=== PATIENT | male | born 1965 | race Caucasian/White ===

== ENCOUNTER 2018-02-09 19:50 | Inpatient (IN) | payer BC, OTHER, SELFPAY ==
[~2018-02-09] VITALS: Ht 185.4 cm; Wt 142.9 kg
[2018-02-09] MEDS ORDERED: SODIUM CHLORIDE FLUSH 10ML SYR IVF ONE ×2 (20:30→21:30)
[2018-02-09] MEDS ORDERED: NITROGLYCERIN SINGLE TAB 0.4 MG SL ONE ×2 (20:36→20:42)
[2018-02-09] MEDS: NITROGLYCERIN SINGLE TAB 0.4 MG SL PRN ×2 (20:44→20:51)
[2018-02-09 21:00] LABS: BASOPHILS # (AUTO) 0.02 x10^3/uL (0-0.1); BASOPHILS % (AUTO) 0 % (0-1); EOSINOPHILS # (AUTO) 0.23 x10^3/uL (0-0.4); EOSINOPHILS % (AUTO) 2 % (1-7); LYMPHOCYTES # (AUTO) 3.29 x10^3/uL (1-3.4); LYMPHOCYTES % (AUTO) 33 % (22-44); MD NO; MEAN CORPUSCULAR HEMOGLOBIN 29.8 pg (27.5-34.5); MEAN CORPUSCULAR HGB CONC 34.3 g/dL (33.2-36.2); MEAN CORPUSCULAR VOLUME 87.1 fL (81-97); MEAN PLATELET VOLUME 7.9 fL (7.4-10.4); MONOCYTES # (AUTO) 0.63 x10^3/uL (0.2-0.8); MONOCYTES % (AUTO) 6 % (2-9); NEUTROPHILS # (AUTO) 5.91 x10^3/uL (1.8-6.8); NEUTROPHILS % (AUTO) 59 % (42-75); PLATELET COUNT 301 x10^3/uL (130-400); RED BLOOD COUNT 6.01 x10^6/uL (4.38-5.82); RED CELL DISTRIBUTION WIDTH 13.8 % (9.4-14.8)
[2018-02-09 21:15] LABS: ALBUMIN 4.1 g/dL (3.4-5.0); ANION GAP 6 mmol/L (5-15); CALCIUM 8.9 mg/dL (8.5-10.1); CHLORIDE 106 mmol/L (98-107)
[2018-02-09 21:19] LABS: TROPONIN I < 0.015 ng/mL (0.000-0.045)
[2018-02-09] MEDS ORDERED: MORPHINE SULFATE 4 MG/ML, 1ML ONE (21:19)
[2018-02-09] MEDS ORDERED: ASPIRIN 81 MG TABLET CHEW ONE (21:19)
[2018-02-09] MEDS ORDERED: NITROGLYCERIN OINT 2%, 1GM TP ONE ×2 (21:19→21:30)
[2018-02-09] MEDS ORDERED: MORPHINE SULFATE 4 MG/ML, 1ML IVPush PRN (21:30)
[2018-02-09] MEDS ORDERED: ASPIRIN 81 MG TABLET CHEW PO ONE (21:30)
[2018-02-09] MEDS ORDERED: NIAC500T PO (22:26)
[2018-02-09] MEDS ORDERED: OLME1TAB28 PO (22:26)
[2018-02-09] MEDS ORDERED: ACETAMINOPHEN 325 MG TABLET PO PRN (22:30)
[2018-02-09] MEDS ORDERED: TEMAZEPAM 15 MG CAPSULE PO PRN (22:30)
[2018-02-09] MEDS ORDERED: DOCUSATE 100 MG CAPSULE PO PRN (22:30)
[2018-02-09] MEDS ORDERED: ONDANSETRON ODT 4 MG PO PRN (22:30)
[2018-02-09] MEDS ORDERED: ENALAPRILAT 1.25 MG/ML, 2ML IVPush PRN (22:30)
[2018-02-09] MEDS ORDERED: morphine SULFATE 10 MG/ML, 1ML IVPush PRN (22:30)
[2018-02-09] MEDS ORDERED: LIDODERM 5% PATCH TD PRN (22:30)
[2018-02-09] MEDS ORDERED: NITROGLYCERIN 0.4 MG BOTTLE (25 TABS) SL PRN (22:30)
[2018-02-09] MEDS ORDERED: ROSU20TA PO (22:51)
[2018-02-09] MEDS ORDERED: ATORVASTATIN 40 MG TABLET PO SCH (23:00)
[2018-02-09 23:28] VITALS: BP 150/99
[2018-02-10] MEDS: HEPARIN 5,000 UNITS/ML, 1ML SQ SCH ×2 (00:11→10:27)
[2018-02-10 02:00] VITALS: BP 128/79
[2018-02-10 03:28] LABS: TROPONIN I < 0.015 ng/mL (0.000-0.045)
[2018-02-10 07:23] VITALS: BP 145/89
[2018-02-10] MEDS ORDERED: REGADENOSON 0.4 MG/5 ML SYRINGE ONE (07:51)
[2018-02-10] MEDS ORDERED: [UNRECOGNIZED DRUG - OTHER] PO SCH (09:00)
[2018-02-10] MEDS ORDERED: NIACIN 500 MG TABLET.ER PO SCH (09:00)
[2018-02-10] MEDS ORDERED: HYDROCHLOROTHIAZIDE 25 MG TABLET PO SCH (09:00)
[2018-02-10] MEDS ORDERED: LOSARTAN 50MG TABLET PO SCH (09:00)
[2018-02-10] MEDS ORDERED: OLMESARTAN PO SCH (09:00)
[2018-02-10] MEDS ORDERED: HYDROCHLOROTHIAZIDE PO SCH (09:00)
[2018-02-10 11:28] LABS: TROPONIN I < 0.015 ng/mL (0.000-0.045)
[2018-02-10] MEDS ORDERED: METO25TA35 PO (13:47)
[2018-02-10] MEDS ORDERED: HYDR25TA6 PO (13:47)
[2018-02-10] MEDS ORDERED: ASPI-515 PO (13:47)
[2018-02-10] MEDS ORDERED: ATOR40TA78 PO (13:47)
== END 2018-02-10 16:15 | disposition home or self-care (01) | DRG 313 ==
LOC: ED 22:24 → EDIP 22:44 → 4WST 22:59 → DCLOUNGE 02-10 16:02
PROVIDERS: ADMIT Hospitalist; ATTEND Hospitalist
DX: R07.89 Other chest pain (principal); Z68.41 Body mass index [BMI] 40.0-44.9, adult; I11.9 Hypertensive heart disease without heart failure; E66.01 Morbid (severe) obesity due to excess calories; F17.210 Nicotine dependence, cigarettes, uncomplicated; Z79.82 Long term (current) use of aspirin; Z79.899 Other long term (current) drug therapy; I25.2 Old myocardial infarction; Z88.8 Allergy status to other drugs, medicaments and biological substances; Z91.048 Other nonmedicinal substance allergy status
CPT/HCPCS: 0399T; 36415; 71045; 78452; 80048; 82040; 83880; 84484; 85025; 93005; 93017; 93306; G0378; J1644; J2785; A9502; C9898

== ENCOUNTER 2018-10-24 13:37 | Observation (INO) | payer OTHER ==
[~2018-10-24] VITALS: Ht 185.4 cm; Wt 145.7 kg
[~2018-10-24 13:37] MED LIST: ASPI-515 PO; ATOR40TA78 PO; HYDR25TA6 PO; METO25TA35 PO; NIAC500T PO; OLME1TAB28 PO; ROSU20TA2 PO
--- NOTE | 2018-10-24 13:53 | NUR ---
pt to room from lobby
[2018-10-24] MEDS ORDERED: ASPIRIN 81 MG TABLET CHEW PO ONE (14:00)
[2018-10-24] MEDS ORDERED: SODIUM CHLORIDE FLUSH 10ML SYR IVF ONE (14:00)
--- NOTE | 2018-10-24 14:01 | NUR ---
pt upright on gurney awake & calm, responds approp to staff, NAD, comfort measures provided, call light within reach.
[2018-10-24 14:25] LABS: BASOPHILS # (AUTO) 0.02 x10^3/uL (0-0.1); BASOPHILS % (AUTO) 0 % (0-1); EOSINOPHILS % (AUTO) 4 % (1-7); LYMPHOCYTES # (AUTO) 2.21 x10^3/uL (1-3.4); LYMPHOCYTES % (AUTO) 29 % (22-44); MD NO; MEAN CORPUSCULAR HEMOGLOBIN 29.4 pg (27.5-34.5); MEAN CORPUSCULAR VOLUME 89.2 fL (81-97); MEAN PLATELET VOLUME 7.7 fL (7.4-10.4); MONOCYTES % (AUTO) 7 % (2-9); NEUTROPHILS # (AUTO) 4.65 x10^3/uL (1.8-6.8); NEUTROPHILS % (AUTO) 61 % (42-75); PLATELET COUNT 253 x10^3/uL (130-400); RED BLOOD COUNT 5.61 x10^6/uL (4.38-5.82); RED CELL DISTRIBUTION WIDTH 13.8 % (9.4-14.8)
--- NOTE | 2018-10-24 15:02 | NUR ---
pt upright on gurney with eyes closed, able to doze off, responds approp to staff, NAD, comfort measures provided, call light within reach.
[2018-10-24 15:14] LABS: ALBUMIN 3.9 g/dL (3.4-5.0); ANION GAP 4 mmol/L (5-15); CALCIUM 8.4 mg/dL (8.5-10.1); CHLORIDE 110 mmol/L (98-107); CREATININE 0.95 mg/dL (0.7-1.3)
[2018-10-24 15:18] LABS: TROPONIN I < 0.015 ng/mL (0.000-0.045)
--- NOTE | 2018-10-24 16:12 | NUR ---
Pt to be admitted to [facility], room 508-2. Report called to [place].
--- NOTE | 2018-10-24 16:15 | NUR ---
pt upright on gurney awake & calm, responds approp to staff, NAD, comfort measures provided, call light within reach.
[2018-10-24 16:37] VITALS: BP 151/92
[2018-10-24] MEDS ORDERED: LABETALOL 5 MG/ML SYRINGE IVPush PRN (18:00)
[2018-10-24] MEDS ORDERED: NITROGLYCERIN 0.4 MG/SPRAY SL PRN (18:00)
[2018-10-24] MEDS ORDERED: morphine SULFATE 10 MG/ML, 1ML IVPush PRN (18:00)
[2018-10-24] MEDS ORDERED: hydrALAzine 20 MG/ML, 1ML IVPush PRN (18:00)
[2018-10-24] MEDS ORDERED: ACETAMINOPHEN 325 MG TABLET PO PRN (18:00)
[2018-10-24] MEDS ORDERED: LIDODERM 5% PATCH TD PRN (18:00)
[2018-10-24] MEDS ORDERED: NITROGLYCERIN 0.4 MG BOTTLE (25 TABS) SL PRN (18:00)
[2018-10-24] MEDS ORDERED: ONDANSETRON ODT 4 MG PO PRN (18:00)
[2018-10-24] MEDS ORDERED: OMNIPAQUE 350 MG/ML, 100ML BOTTLE ONE (18:09)
[2018-10-24] MEDS: HEPARIN 5,000 UNITS/ML, 1ML SQ SCH (18:28)
[2018-10-24 18:40] VITALS: BP 161/94
[2018-10-24 18:52] LABS: TROPONIN I < 0.015 ng/mL (0.000-0.045)
[2018-10-24 18:53] LABS: ALBUMIN 3.7 g/dL (3.4-5.0); BILIRUBIN, DIRECT 0.2 mg/dL (0.1-0.2)
[2018-10-24] MEDS ORDERED: FUROSEMIDE 20 MG/2 ML IV ONE (19:00)
[2018-10-24 19:02] LABS: BILIRUBIN,INDIRECT 0.5 mg/dL (0.0-2.0); BILIRUBIN,TOTAL 0.7 mg/dL (0.2-1.0); TOTAL PROTEIN 7.3 g/dL (6.4-8.2)
[2018-10-24 19:50] VITALS: BP 144/86
[2018-10-24] MEDS: METOPROLOL TARTRATE 25 MG TABLET PO SCH (19:54)
[2018-10-24] MEDS ORDERED: DOCUSATE 100 MG CAPSULE PO PRN (21:00)
[2018-10-24] MEDS ORDERED: ATORVASTATIN 40 MG TABLET PO SCH (21:00)
[2018-10-24 23:41] LABS: TROPONIN I < 0.015 ng/mL (0.000-0.045)
[2018-10-25 00:09] VITALS: BP 138/92
[2018-10-25] MEDS: HEPARIN 5,000 UNITS/ML, 1ML SQ SCH ×3 (02:23→20:56)
[2018-10-25 04:39] LABS: BASOPHILS # (AUTO) 0.02 x10^3/uL (0-0.1); BASOPHILS % (AUTO) 0 % (0-1); EOSINOPHILS # (AUTO) 0.33 x10^3/uL (0-0.4); EOSINOPHILS % (AUTO) 5 % (1-7); LYMPHOCYTES # (AUTO) 2.31 x10^3/uL (1-3.4); LYMPHOCYTES % (AUTO) 31 % (22-44); MD NO; MEAN CORPUSCULAR HEMOGLOBIN 30.1 pg (27.5-34.5); MEAN CORPUSCULAR HGB CONC 33.7 g/dL (33.2-36.2); MEAN CORPUSCULAR VOLUME 89.4 fL (81-97); MEAN PLATELET VOLUME 8.1 fL (7.4-10.4); MONOCYTES # (AUTO) 0.58 x10^3/uL (0.2-0.8); MONOCYTES % (AUTO) 8 % (2-9); NEUTROPHILS % (AUTO) 57 % (42-75); PLATELET COUNT 245 x10^3/uL (130-400); RED CELL DISTRIBUTION WIDTH 14.5 % (9.4-14.8)
[2018-10-25 04:51] LABS: ANION GAP 4 mmol/L (5-15); CALCIUM 8.3 mg/dL (8.5-10.1); CHLORIDE 105 mmol/L (98-107)
[2018-10-25 04:52] LABS: CHOL/HDL RATIO 6.5; CHOLESTEROL, TOTAL 216 mg/dL (140-239); CREATININE 1.12 mg/dL (0.7-1.3); HDL CHOL % 15 % (26-37); HDL CHOLESTEROL (DIRECT) 33 mg/dL (40-60); TRIGLYCERIDES 436 mg/dL (50-200)
[2018-10-25 07:18] VITALS: BP 136/86
[2018-10-25] MEDS: HYDROCHLOROTHIAZIDE 25 MG TABLET PO SCH (07:52)
[2018-10-25] MEDS: LOSARTAN 50MG TABLET PO SCH (07:52)
[2018-10-25] MEDS: ASPIRIN 81 MG TABLET EC PO SCH (07:53)
[2018-10-25] MEDS ORDERED: HYDROCHLOROTHIAZIDE PO SCH (09:00)
[2018-10-25] MEDS ORDERED: OLMESARTAN PO SCH (09:00)
[2018-10-25] MEDS ORDERED: [UNRECOGNIZED DRUG - OTHER] PO SCH (09:00)
[2018-10-25] MEDS ORDERED: REGADENOSON 0.4 MG/5 ML SYRINGE ONE (10:38)
[2018-10-25] MEDS: FENOFIBRATE 145 MG TABLET PO SCH (12:05)
[2018-10-25] MEDS: METOPROLOL TARTRATE 25 MG TABLET PO SCH ×2 (12:06→20:56)
[2018-10-25 12:40] VITALS: BP 127/87
[2018-10-25] MEDS ORDERED: FUROSEMIDE 20 MG TABLET PO ONE (15:30)
[2018-10-25 20:04] VITALS: BP 151/99
[2018-10-25] MEDS ORDERED: ATORVASTATIN 80 MG TABLET PO SCH (21:00)
[2018-10-26] MEDS: HEPARIN 5,000 UNITS/ML, 1ML SQ SCH ×2 (04:09→12:39)
[2018-10-26 04:14] VITALS: BP 127/81
[2018-10-26 07:41] VITALS: BP 126/78
[2018-10-26] MEDS: HYDROCHLOROTHIAZIDE 25 MG TABLET PO SCH (10:15)
[2018-10-26] MEDS: LOSARTAN 50MG TABLET PO SCH (10:15)
[2018-10-26] MEDS: FENOFIBRATE 145 MG TABLET PO SCH (10:16)
[2018-10-26] MEDS: METOPROLOL TARTRATE 25 MG TABLET PO SCH (10:16)
[2018-10-26] MEDS: ASPIRIN 81 MG TABLET EC PO SCH (10:16)
[2018-10-26 13:28] VITALS: BP 139/84
[2018-10-26] MEDS ORDERED: NITR0.4T28 SL (15:36)
[2018-10-26] MEDS ORDERED: DOCU-131 PO (15:36)
[2018-10-26] MEDS ORDERED: LIDO700A20 TD (15:36)
[2018-10-26] MEDS ORDERED: ATOR-2 PO (15:36)
[2018-10-26] MEDS ORDERED: FENO145T30 PO (15:36)
== END 2018-10-26 17:15 | disposition home or self-care (01) ==
LOC: ED 15:52 → EDIP 16:13 → INTOOBSV 16:13 → 5SO 16:21 → DCLOUNGE 10-26 16:59
PROVIDERS: ADMIT Internal Medicine; ATTEND Internal Medicine
DX: I20.0 Unstable angina (principal); I16.0 Hypertensive urgency; I11.9 Hypertensive heart disease without heart failure; I51.9 Heart disease, unspecified; E78.5 Hyperlipidemia, unspecified; E78.1 Pure hyperglyceridemia; D18.03 Hemangioma of intra-abdominal structures; I25.2 Old myocardial infarction; E66.01 Morbid (severe) obesity due to excess calories; K76.0 Fatty (change of) liver, not elsewhere classified; K57.90 Diverticulosis of intestine, part unspecified, without perforation or abscess without bleeding; Z72.0 Tobacco use; Z79.82 Long term (current) use of aspirin; Z79.899 Other long term (current) drug therapy
CPT/HCPCS: 36415; 71045; 71275; 74174; 78452; 80048; 80061; 80076; 82040; 82550; 83036; 83690; 83880; 84443; 84484; 85025; 93005; 93017; 93306; 93970; 96372; 96374; 99284; A9502; C9898; G0378; J1644; J1940; J2785; Q9967

== ENCOUNTER 2018-11-07 15:08 | Emergency (ER) | payer OTHER ==
[~2018-11-07] VITALS: Ht 182.9 cm; Wt 148.0 kg
[~2018-11-07 15:08] MED LIST changes: +ATOR-2 PO; +DOCU-131 PO; +FENO145T30 PO; +LIDO700A20 TD; +NITR0.4T28 SL
--- NOTE | 2018-11-07 15:32 | NUR ---
PT. ARRIVES BY [facility] WITH C/O A NEAR SYNCOPAL EPISODE WHILE HE WAS SHOEING HIS HORSE. PT. WAS SEEN 2 WEEKS AGO AND TOLD HE HAS DIASTOLIC HEART FAILURE. PT. WAS PLACED ON NEW MEDICATIONS AND A FLUID RESTRICTION. UPON ARRIVAL PT. IS PINK, WARM AND DRY. LUNGS ARE SLIGHTLY DIMINISHED IN THE BASES. CAP REFILL IS BRISK, LESS THAN 3 SECONDS. ABD. IS SOFT AND ROUND WITH BS + X 4 QUADS. PT.'S 12 LEAD EKG WAS DONE. PT. WAS PLACED ON THE MONITOR. IV ACCESS WAS ESTABLISHED IN THE FIELD. SIDERAILS REMAIN UP X 2 WITH THE CALL LIGHT IN PLACE.
[2018-11-07 15:43] LABS: BASOPHILS # (AUTO) 0.04 x10^3/uL (0-0.1); BASOPHILS % (AUTO) 0 % (0-1); EOSINOPHILS % (AUTO) 2 % (1-7); LYMPHOCYTES # (AUTO) 1.85 x10^3/uL (1-3.4); LYMPHOCYTES % (AUTO) 19 % (22-44); MD NO; MEAN CORPUSCULAR HEMOGLOBIN 30.2 pg (27.5-34.5); MEAN CORPUSCULAR HGB CONC 33.8 g/dL (33.2-36.2); MEAN CORPUSCULAR VOLUME 89.5 fL (81-97); MEAN PLATELET VOLUME 8.6 fL (7.4-10.4); MONOCYTES # (AUTO) 0.53 x10^3/uL (0.2-0.8); MONOCYTES % (AUTO) 6 % (2-9); NEUTROPHILS # (AUTO) 6.92 x10^3/uL (1.8-6.8); NEUTROPHILS % (AUTO) 73 % (42-75); PLATELET COUNT 285 x10^3/uL (130-400); RED BLOOD COUNT 5.62 x10^6/uL (4.38-5.82); RED CELL DISTRIBUTION WIDTH 13.6 % (9.4-14.8)
[2018-11-07 15:53] LABS: ALANINE AMINOTRANSFERASE 39 U/L (12-78); ALBUMIN 4.2 g/dL (3.4-5.0); ANION GAP 7 mmol/L (5-15); CALCIUM 8.9 mg/dL (8.5-10.1); CHLORIDE 104 mmol/L (98-107); CREATININE 1.57 mg/dL (0.7-1.3)
[2018-11-07 15:58] LABS: ALKALINE PHOSPHATASE 81 U/L (45-117); BILIRUBIN,TOTAL 1.2 mg/dL (0.2-1.0); TOTAL PROTEIN 7.7 g/dL (6.4-8.2); TROPONIN I < 0.015 ng/mL (0.000-0.045)
--- NOTE | 2018-11-07 16:01 | NUR ---
PT AAO X 4, VSS, RESTING ON GURNEY COMFORTABLY, FALL PRECUATIONS IN PLACE, ALL NEEDS MET.
[2018-11-07] MEDS ORDERED: POTASSIUM CHLORIDE 20 MEQ TAB.ER.PRT ONE (16:43)
[2018-11-07] MEDS ORDERED: POTASSIUM CHLORIDE 20 MEQ TAB.ER.PRT PO ONE (17:00)
[2018-11-07 17:49] VITALS: BP 123/81
--- NOTE | 2018-11-07 18:10 | NUR ---
Patient/Caregiver given discharge instructions and they have confirmed that they understand the instructions. Patient ambulatory with steady gait.
== END 2018-11-07 18:24 | disposition home or self-care (01) ==
LOC: ED 16:46
DX: N28.9 Disorder of kidney and ureter, unspecified (principal); R55 Syncope and collapse; I11.0 Hypertensive heart disease with heart failure; I50.9 Heart failure, unspecified; E78.00 Pure hypercholesterolemia, unspecified; I25.10 Atherosclerotic heart disease of native coronary artery without angina pectoris
CPT/HCPCS: 36415; 71045; 80053; 83735; 83880; 84484; 85025; 93005; 99284